=== PATIENT | female | born 1975 | race African-American/Black ===

== ENCOUNTER 2022-10-08 22:21 | Emergency (ER) | payer OTHER ==
[~2022-10-08] VITALS: Ht 165.1 cm; Wt 108.9 kg
--- NOTE | 2022-10-09 00:55 | NUR ---
BIBSELF WITH HISOTRY OF SickleCell C/O LOWER BACK PAIN AND BODY ACHES. PT AWAKE AND ALERTX4, RAN OUT OF PAIN MEDS AND NEXT APT ON SUNDAY.
[2022-10-09] MEDS ORDERED: MORPHINE SULFATE INJ 4 MG/ML DISP.SYRIN ONE (01:22)
[2022-10-09] MEDS ORDERED: IV NS 0.9% 1,000 ML BAG IV ONE (01:30)
[2022-10-09] MEDS ORDERED: MORPHINE SULFATE INJ 2 MG/ML DISP.SYRIN IV ONE (01:30)
--- NOTE | 2022-10-09 01:59 | NUR ---
24G FERNIE BLOOD SENT TO LAB
[2022-10-09 02:03] LABS: BASOPHILS # (AUTO) 0.1 K/uL (0.0-0.2); BASOPHILS % (AUTO) 0.8 % (0.0-2.0); EOSINOPHILS % (AUTO) 1.5 % (0.0-6.0); HEMATOCRIT 31 % (33-45); HEMOGLOBIN 9.8 g/dL (11.5-14.8); LYMPHOCYTES # (AUTO) 2.8 K/uL (0.8-4.8); LYMPHOCYTES % (AUTO) 23.8 % (20.0-44.0); MEAN CORPUSCULAR HGB CONC 32 g/dl (31.0-36.0); MEAN CORPUSCULAR VOLUME 80 fL (82-100); MONOCYTES # (AUTO) 0.7 K/uL (0.1-1.30); MONOCYTES % (AUTO) 5.8 % (2.0-12.0); NEUTROPHILS # (AUTO) 8.1 K/uL (1.8-8.9); NEUTROPHILS % (AUTO) 68.1 % (43.0-81.0); PLATELET COUNT (AUTO) 158 K/uL (150-450); RED BLOOD CELL COUNT(AUTO) 3.87 MIL/uL (4.0-5.2); WHITE BLOOD COUNT (AUTO) 11.9 K/uL (4.3-11.0)
[2022-10-09 02:06] LABS: CALCIUM, SERUM 8.7 mg/dL (8.5-10.1); CARBON DIOXIDE 22 mmol/L (21-32); CHLORIDE 106 mmol/L (98-107); CREATININE 0.8 mg/dL (0.6-1.3); GLUCOSE 148 mg/dL (74-106); POTASSIUM 3.2 mmol/L (3.5-5.1); SODIUM SERUM 137 mmol/L (136-145); UREA NITROGEN, BLOOD 8 mg/dL (7-18)
[2022-10-09] MEDS ORDERED: ONDANSETRON HCL/PF 4 MG/2 ML VIAL ONE (02:38)
[2022-10-09] MEDS ORDERED: HYDROMORPHONE 1 MG/1 ML DISP.SYRIN ONE (02:38)
[2022-10-09] MEDS ORDERED: HYDROMORPHONE 1 MG/1 ML DISP.SYRIN IV ONE (03:00)
[2022-10-09] MEDS ORDERED: ONDANSETRON HCL/PF 4 MG/2 ML VIAL IV ONE (03:00)
[2022-10-09] MEDS ORDERED: POTASSIUM CHLORIDE 20 MEQ TAB.PRT.SR PO ONE (03:00)
[2022-10-09 03:08] LABS: LYMPHOCYTES % (MANUAL) 18 % (16-48); MONOCYTES % (MANUAL) 10 % (0-11.0); NEUTROPHILS % (MANUAL) 72 (42-76)
[2022-10-09] MEDS ORDERED: POTASSIUM CHLORIDE 10 MEQ TABLET.SA ONE (03:19)
[2022-10-09] MEDS ORDERED: HYDR-3980 PO (03:41)
[2022-10-09 04:00] VITALS: BP 165/90; TEMP 98.5; O2SAT 99
--- NOTE | 2022-10-09 04:00 | NUR ---
Patient discharged to home in stable condition. Written and verbal after care instructions given. Patient verbalizes understanding of instruction.IV removed. Catheter intact and site benign. Pressure and 4x4 applied to site. No bleeding noted.
== END 2022-10-09 04:01 | disposition home or self-care (01) ==
LOC: ER 22:25
DX: E87.1 Hypo-osmolality and hyponatremia (principal); Z60.2 Problems related to living alone
CPT/HCPCS: 99285; 96374; 71045; 96375; 96361; 93005; 85025; 80048; 36415; 84484; 85007; J2270; J2405; J7030; J1170